=== PATIENT | male | born 1965 | race Caucasian/White ===

== ENCOUNTER 2022-10-14 08:09 | Outpatient (CLI) | payer OTHER, SELFPAY | END 2022-10-14 08:10 | disposition home or self-care (01) | PROVIDERS: PCP Internal Medicine; Visit Provider Internal Medicine | DX: Z00.00 Encounter for general adult medical examination without abnormal findings (principal); E78.5 Hyperlipidemia, unspecified; N40.0 Benign prostatic hyperplasia without lower urinary tract symptoms; Z12.5 Encounter for screening for malignant neoplasm of prostate | CPT/HCPCS: 80053; 80061; 84153 ==

== ENCOUNTER 2023-10-20 08:49 | Outpatient (CLI) | payer OTHER, SELFPAY | END 2023-10-20 08:50 | disposition home or self-care (01) | PROVIDERS: PCP Internal Medicine; Visit Provider Internal Medicine | DX: Z00.00 Encounter for general adult medical examination without abnormal findings (principal); E78.5 Hyperlipidemia, unspecified; Z12.5 Encounter for screening for malignant neoplasm of prostate; Z13.9 Encounter for screening, unspecified | CPT/HCPCS: 80053; 80061; G0103 ==

== ENCOUNTER 2024-10-27 08:47 | Outpatient (CLI) | payer OTHER, SELFPAY | END 2024-10-27 08:48 | disposition home or self-care (01) | PROVIDERS: PCP Internal Medicine; Visit Provider Internal Medicine | DX: E78.5 Hyperlipidemia, unspecified (principal); I10 Essential (primary) hypertension; Z12.5 Encounter for screening for malignant neoplasm of prostate | CPT/HCPCS: 80053; 80061; G0103 ==